=== PATIENT | male | born 1950 | race Caucasian/White ===

== ENCOUNTER 2018-10-30 07:14 | Day surgery (SDC) | payer MEDICARE, OTHER ==
[~2018-10-30] VITALS: Ht 167.6 cm; Wt 75.9 kg
[2018-10-30] MEDS ORDERED: albumin 25% 100mL bottle x 1 IV PRN (07:35)
[2018-10-30] MEDS ORDERED: normal saline 1000ml 1,000 ML IV PRN (07:40)
[2018-10-30 08:07] VITALS: BP 134/78
[2018-10-30] MEDS ORDERED: SPIR25TA PO (08:13)
[2018-10-30] MEDS ORDERED: AMLO5TAB4 PO (08:13)
[2018-10-30] MEDS ORDERED: ACET-3067 PO (08:13)
[2018-10-30] MEDS ORDERED: FURO-149 PO (08:13)
[2018-10-30] MEDS ORDERED: LEVO50TA8 PO (08:13)
[2018-10-30 09:40] VITALS: BP 123/81
[2018-10-30 09:55] VITALS: BP 120/82
[2018-10-30 10:00] VITALS: BP 133/86
[2018-10-30 10:15] VITALS: BP 137/77
[2018-10-30 10:30] VITALS: BP 123/77
== END 2018-10-30 10:30 | disposition home or self-care (01) ==
LOC: SSTAY O 07:14
PROVIDERS: ATTEND Radiology Vascular & Interventional Radiology
DX: R18.8 Other ascites (principal); K74.60 Unspecified cirrhosis of liver; Z88.0 Allergy status to penicillin; Z87.891 Personal history of nicotine dependence; Z72.89 Other problems related to lifestyle; Z98.1 Arthrodesis status
CPT/HCPCS: 49083; C1729; J7030

== ENCOUNTER 2018-11-09 07:42 | Day surgery (SDC) | payer MEDICARE, OTHER ==
[~2018-11-09] VITALS: Ht 167.6 cm; Wt 75.7 kg
[~2018-11-09 07:42] MED LIST: ACET-3067 PO; AMLO5TAB4 PO; FURO-149 PO; LEVO50TA8 PO; SPIR25TA PO
[2018-11-09 07:57] VITALS: BP 143/80
[2018-11-09] MEDS ORDERED: albumin 25% 100mL bottle x 1 IV PRN (08:05)
[2018-11-09] MEDS ORDERED: normal saline 1000ml 1,000 ML IV PRN (08:05)
[2018-11-09 08:47] VITALS: BP 143/88
[2018-11-09 09:00] VITALS: BP 125/82
== END 2018-11-09 09:20 | disposition home or self-care (01) ==
LOC: SSTAY O 07:42
PROVIDERS: ATTEND Radiology Diagnostic Radiology
DX: R18.8 Other ascites (principal); K74.60 Unspecified cirrhosis of liver; Z98.1 Arthrodesis status; Z87.891 Personal history of nicotine dependence; Z88.0 Allergy status to penicillin; Z79.899 Other long term (current) drug therapy
CPT/HCPCS: 49083; C1729; J7030

== ENCOUNTER → 2018-11-18 | Day surgery (SDC) | payer MEDICARE, OTHER ==
[~2018-11-18] VITALS: Ht 170.2 cm; Wt 71.6 kg
[~2018-11-18] MED LIST changes: -AMLO5TAB4 PO; +albumin 25% 100mL bottle x 1 IV PRN
[2018-11-18 08:55] VITALS: BP 132/89
== END | disposition home or self-care (01) ==
LOC: SSTAY O 08:44
PROVIDERS: ATTEND Radiology Diagnostic Radiology
DX: R18.8 Other ascites (principal); K74.60 Unspecified cirrhosis of liver
CPT/HCPCS: 76705

== ENCOUNTER 2018-11-27 07:44 | Day surgery (SDC) | payer MEDICARE, OTHER ==
[~2018-11-27] VITALS: Ht 167.6 cm; Wt 67.3 kg
[~2018-11-27 07:44] MED LIST changes: -albumin 25% 100mL bottle x 1 IV PRN
[2018-11-27] MEDS ORDERED: albumin 25% 100mL bottle x 1 IV PRN (08:05)
[2018-11-27] MEDS ORDERED: normal saline 1000ml 1,000 ML IV PRN (08:05)
[2018-11-27 08:30] VITALS: BP 112/80
[2018-11-27 09:10] VITALS: BP 123/80
[2018-11-27 09:32] VITALS: BP 124/78
[2018-11-27 09:45] VITALS: BP 118/79
[2018-11-27 10:00] VITALS: BP 125/83
[2018-11-27 16:43] VITALS: BP 112/80
== END 2018-11-27 10:05 | disposition home or self-care (01) ==
LOC: SSTAY O 07:44
PROVIDERS: ATTEND Radiology Diagnostic Radiology
DX: R18.8 Other ascites (principal); K74.60 Unspecified cirrhosis of liver; Z87.891 Personal history of nicotine dependence; Z88.0 Allergy status to penicillin; Z98.1 Arthrodesis status; Z79.899 Other long term (current) drug therapy
CPT/HCPCS: 49083; C1729; J7030

== ENCOUNTER 2018-12-15 07:39 | Day surgery (SDC) | payer MEDICARE, OTHER ==
[~2018-12-15] VITALS: Ht 167.6 cm; Wt 67.1 kg
[2018-12-15] MEDS ORDERED: normal saline 1000ml 1,000 ML IV PRN (08:00)
[2018-12-15] MEDS ORDERED: albumin 25% 100mL bottle x 1 IV PRN (08:00)
[2018-12-15 08:09] VITALS: BP 125/84
[2018-12-15] MEDS ORDERED: OXYC-511 PO (08:12)
== END 2018-12-15 09:45 | disposition home or self-care (01) ==
LOC: SSTAY O 07:39
PROVIDERS: ATTEND Radiology Vascular & Interventional Radiology
DX: R18.8 Other ascites (principal); K74.60 Unspecified cirrhosis of liver; Z87.891 Personal history of nicotine dependence; Z79.899 Other long term (current) drug therapy; Z88.0 Allergy status to penicillin; Z98.1 Arthrodesis status
CPT/HCPCS: 49083; J7030

== ENCOUNTER 2018-12-21 07:43 | Day surgery (SDC) | payer MEDICARE, OTHER ==
[~2018-12-21] VITALS: Ht 167.6 cm; Wt 67.6 kg
[~2018-12-21 07:43] MED LIST changes: -ACET-3067 PO; +OXYC-511 PO
[2018-12-21] MEDS ORDERED: normal saline 1000ml 1,000 ML IV PRN (08:10)
[2018-12-21] MEDS ORDERED: albumin 25% 100mL bottle x 1 IV PRN (08:10)
[2018-12-21 09:15] VITALS: BP 127/80
[2018-12-21 09:36] VITALS: BP 136/91
[2018-12-21 09:45] VITALS: BP 136/84
[2018-12-21 10:00] VITALS: BP 115/75
[2018-12-21 10:15] VITALS: BP 117/72
== END 2018-12-21 10:20 | disposition home or self-care (01) ==
LOC: SSTAY O 07:43
PROVIDERS: ATTEND Radiology Diagnostic Radiology
DX: R18.8 Other ascites (principal); K74.60 Unspecified cirrhosis of liver; Z87.891 Personal history of nicotine dependence; Z98.1 Arthrodesis status; Z88.0 Allergy status to penicillin; Z79.899 Other long term (current) drug therapy
CPT/HCPCS: 49083; C1729; J7030

== ENCOUNTER 2019-01-05 07:02 | Day surgery (SDC) | payer MEDICARE, OTHER ==
[~2019-01-05] VITALS: Ht 167.6 cm; Wt 64.5 kg
[2019-01-05] MEDS ORDERED: albumin 25% 100mL bottle x 1 IV PRN (07:25)
[2019-01-05] MEDS ORDERED: normal saline 1000ml 1,000 ML IV PRN (07:25)
[2019-01-05 07:45] VITALS: BP 126/76
[2019-01-05 09:17] VITALS: BP 124/78
[2019-01-05 09:30] VITALS: BP 111/73
[2019-01-05 09:45] VITALS: BP 113/71
== END 2019-01-05 10:05 | disposition home or self-care (01) ==
LOC: SSTAY O 07:02
PROVIDERS: ATTEND Radiology Vascular & Interventional Radiology
DX: K70.31 Alcoholic cirrhosis of liver with ascites (principal); Z88.0 Allergy status to penicillin; Z98.1 Arthrodesis status; Z87.891 Personal history of nicotine dependence; Z86.19 Personal history of other infectious and parasitic diseases
CPT/HCPCS: 49083; C1729; J7030

== ENCOUNTER 2019-01-19 07:24 | Day surgery (SDC) | payer MEDICARE, OTHER ==
[~2019-01-19] VITALS: Ht 167.6 cm; Wt 64.4 kg
[2019-01-19] MEDS ORDERED: albumin 25% 100mL bottle x 1 IV PRN (07:45)
[2019-01-19] MEDS ORDERED: normal saline 1000ml 1,000 ML IV PRN (07:45)
[2019-01-19 07:49] VITALS: BP 118/67
[2019-01-19 09:20] VITALS: BP 125/82
== END 2019-01-19 09:20 | disposition home or self-care (01) ==
LOC: SSTAY O 07:24
PROVIDERS: ATTEND Radiology Diagnostic Radiology
DX: R18.8 Other ascites (principal); K74.60 Unspecified cirrhosis of liver; Z98.1 Arthrodesis status; Z87.891 Personal history of nicotine dependence; Z88.0 Allergy status to penicillin; Z79.899 Other long term (current) drug therapy
CPT/HCPCS: 76705; J7030

== ENCOUNTER 2019-01-26 07:10 | Day surgery (SDC) | payer MEDICARE, OTHER ==
[~2019-01-26] VITALS: Ht 167.6 cm; Wt 61.4 kg
[2019-01-26] MEDS ORDERED: albumin 25% 100mL bottle x 1 IV PRN (07:30)
[2019-01-26] MEDS ORDERED: normal saline 1000ml 1,000 ML IV PRN (07:35)
--- NOTE | 2019-01-26 09:10 | NUR ---
PT PROCEDURE CANCELLED PER PA. NO FLUID PER US.
== END 2019-01-26 09:10 | disposition home or self-care (01) ==
LOC: SSTAY O 07:10
PROVIDERS: ATTEND Radiology Vascular & Interventional Radiology
DX: K70.31 Alcoholic cirrhosis of liver with ascites (principal); I10 Essential (primary) hypertension; K21.9 Gastro-esophageal reflux disease without esophagitis; Z88.0 Allergy status to penicillin; Z98.1 Arthrodesis status; Z79.899 Other long term (current) drug therapy; F17.210 Nicotine dependence, cigarettes, uncomplicated; Z72.89 Other problems related to lifestyle
CPT/HCPCS: 76705; J7030

== ENCOUNTER 2019-02-09 07:43 | Day surgery (SDC) | payer MEDICARE, OTHER ==
[~2019-02-09] VITALS: Ht 167.6 cm; Wt 61.1 kg
[2019-02-09 07:45] VITALS: BP 123/76
[2019-02-09] MEDS ORDERED: normal saline 1000ml 1,000 ML IV PRN (08:10)
[2019-02-09] MEDS ORDERED: albumin 25% 100mL bottle x 1 IV PRN (08:10)
== END 2019-02-09 09:35 | disposition home or self-care (01) ==
LOC: SSTAY O 07:43
PROVIDERS: ATTEND Radiology Diagnostic Radiology
DX: R18.8 Other ascites (principal); K74.60 Unspecified cirrhosis of liver; Z98.1 Arthrodesis status; Z87.891 Personal history of nicotine dependence; Z88.0 Allergy status to penicillin; Z79.899 Other long term (current) drug therapy
CPT/HCPCS: 76705; J7030

== ENCOUNTER 2020-10-26 06:30 | Day surgery (SDC) | payer MEDICARE, OTHER ==
[~2020-10-26] VITALS: Ht 167.6 cm; Wt 53.9 kg
[~2020-10-26 06:30] MED LIST changes: -OXYC-511 PO; +OXYC1TAB17 PO
[2020-10-26 07:00] VITALS: BP 97/62
[2020-10-26] MEDS ORDERED: albumin 25% 100mL bottle x 1 IV PRN (07:05)
[2020-10-26] MEDS ORDERED: normal saline 1000ml 1,000 ML IV PRN (07:05)
[2020-10-26] MEDS ORDERED: HYDR-3972 PO (07:36)
[2020-10-26] MEDS ORDERED: HYDR200T84 PO (07:36)
[2020-10-26] MEDS ORDERED: VITA400T10 PO (07:36)
[2020-10-26] MEDS ORDERED: LEVO75TA7 PO (07:36)
[2020-10-26] MEDS ORDERED: OMEP40CA21 PO (07:36)
== END 2020-10-26 08:45 | disposition home or self-care (01) ==
LOC: SSTAY O 06:30
PROVIDERS: ATTEND Radiology Vascular & Interventional Radiology
DX: R18.8 Other ascites (principal); Z53.8 Procedure and treatment not carried out for other reasons; R14.0 Abdominal distension (gaseous); K74.60 Unspecified cirrhosis of liver; Z87.891 Personal history of nicotine dependence; Z72.89 Other problems related to lifestyle; Z90.81 Acquired absence of spleen; Z98.1 Arthrodesis status; Z88.0 Allergy status to penicillin
CPT/HCPCS: 76705

== ENCOUNTER 2020-10-29 13:29 | Emergency (ER) | payer MEDICARE, OTHER ==
[~2020-10-29] VITALS: Ht 167.6 cm; Wt 68.2 kg
[~2020-10-29 13:29] MED LIST changes: +HYDR-3972 PO; +HYDR200T84 PO; -LEVO50TA8 PO; +LEVO75TA7 PO; +OMEP40CA21 PO; -OXYC1TAB17 PO; +VITA400T10 PO
[2020-10-29 15:23] LABS: EOSINOPHILS # (AUTO) 0.1 X10'3 (0-0.9); NEUTROPHILS # (AUTO) 7.5 X10'3 (1.8-7.7)
[2020-10-29 15:24] LABS: BASOPHILS % (AUTO) 0.4 % (0-1); HEMOGLOBIN 12.9 g/dl (14.0-17.9); LYMPHOCYTES # (AUTO) 1.6 X10'3 (1.1-4.8); LYMPHOCYTES % (AUTO) 15.1 % (21-51); MEAN CORPUSCULAR HEMOGLOBIN 30.3 PG (27.0-31.0); MEAN CORPUSCULAR HGB CONC 32.2 g/dL (33.0-36.5); MEAN CORPUSCULAR VOLUME 93.9 FL (78-98); MEAN PLATELET VOLUME 8.7 FL (7.4-10.4); MONOCYTES # (AUTO) 1.2 X10'3 (0-0.9); NEUTROPHILS % (AUTO) 71.5 % (42-75); PLATELET COUNT 729 X10'3 (140-440); RED BLOOD COUNT 4.26 X10'6 (4.70-6.10); RED CELL DISTRIBUTION WIDTH 16.2 % (11.5-14.5); WHITE BLOOD COUNT 10.4 X10'3 (4.5-11.0)
[2020-10-29 15:33] LABS: ALANINE AMINOTRANSFERASE 28 U/L (12-78); ALBUMIN 2.8 G/DL (3.4-5.0); ALBUMIN/GLOBULIN RATIO 0.6 (1.1-1.5); ALKALINE PHOSPHATASE 168 IU/L (46-116); ANION GAP 7 (8-16); ASPARTATE AMINO TRANSFERASE 29 U/L (10-37); BILIRUBIN,TOTAL 0.4 MG/DL (0.1-1.0); BLOOD UREA NITROGEN 23 MG/DL (7-18); BUN/CREATININE RATIO 19.3 (5.4-32.0); CALCIUM 11.5 MG/DL (8.5-10.1); CHLORIDE 92 MMOL/L (99-107); CREATININE 1.19 MG/DL (0.60-1.10); GLUCOSE 86 MG/DL (70-104); POTASSIUM 5.3 MMOL/L (3.5-5.1); SODIUM 128 MMOL/L (135-145); TOTAL CARBON DIOXIDE 28.7 MMOL/L (24-32); TOTAL PROTEIN 7.4 G/DL (6.4-8.2); eGFR 60 ML/MIN
[2020-10-29] MEDS ORDERED: morphine 4 MG/ML inj SYRINge IV ONE ×4 (15:35→20:50)
[2020-10-29] MEDS ORDERED: ondansetron/PF 4mg/2ml inj IV ONE ×2 (15:35→21:15)
[2020-10-29 15:42] LABS: MAGNESIUM 2.2 MG/DL (1.5-2.4); PHOSPHORUS 2.8 MG/DL (2.3-4.5); TROPONIN I 0.11 NG/ML (0.0-0.05)
[2020-10-29] MEDS ORDERED: iohexol 300mg/ml 100ml inj. ONE (16:02)
[2020-10-29 18:02] LABS: C-REACTIVE PROTEIN 1.7 MG/DL (0.0-0.5); TROPONIN I 0.04 NG/ML (0.0-0.05)
--- NOTE | 2020-10-29 18:30 | NUR ---
AGREE WITH GENERAL GROUP ASSESSMENT DONE AT 1700.
[2020-10-29 19:20] LABS: CLARITY,URINE CLEAR (Clear); COLOR,URINE YELLOW (Yellow); GLUCOSE, URINE NEGATIVE (Neg); KETONES,URINE TRACE mg/dl (Neg); LEUKOCYTE ESTERASE ,URINE NEGATIVE (Neg); NITRITES, URINE NEGATIVE (Neg); OCCULT BLOOD,URINE SMALL (Neg); PH,URINE 6.5 (4.8-8.0); PROTEIN,URINE NEGATIVE (Neg); UROBILINOGEN,URINE 0.2 E.U/dL (0.2-1.0)
[2020-10-29 19:21] LABS: UA COLLECTION TYPE VOIDED
[2020-10-29 19:27] LABS: WBC,URINE 0-4 /HPF (0-4)
[2020-10-29 19:28] LABS: BACTERIA,URINE NONE SEEN /HPF (Neg); CAL OXALATE CRYSTALS 1+ /HPF (NEGATIVE); MUCUS STRANDS NONE SEEN /LPF (Neg); SQUAMOUS EPITHELIAL CELL,UR FEW /LPF (FEW)
[2020-10-29] MEDS ORDERED: insulin regular, human 10 units/0.1 ml syringe IV ONE (20:25)
[2020-10-29] MEDS ORDERED: OXYC-658 PO (20:51)
[2020-10-30 06:17] VITALS: BP 116/78
== END 2020-10-29 23:30 | disposition home or self-care (01) ==
LOC: ER 13:29
DX: E87.8 Other disorders of electrolyte and fluid balance, not elsewhere classified (principal); K74.60 Unspecified cirrhosis of liver; R53.1 Weakness; K21.9 Gastro-esophageal reflux disease without esophagitis; E03.9 Hypothyroidism, unspecified; G89.29 Other chronic pain; Z85.528 Personal history of other malignant neoplasm of kidney; Z90.5 Acquired absence of kidney; Z90.49 Acquired absence of other specified parts of digestive tract; Z86.19 Personal history of other infectious and parasitic diseases; Z98.890 Other specified postprocedural states; Z72.89 Other problems related to lifestyle; Z79.899 Other long term (current) drug therapy; Z88.0 Allergy status to penicillin
CPT/HCPCS: 36415; 71045; 74177; 80053; 81001; 82140; 83605; 83735; 83880; 84100; 84145; 84439; 84443; 84484; 85025; 85610; 86140; 93005; 93306; 96374; 96375; 96376; 99285; J2270; J2405; Q9967